=== PATIENT | male | born 1975 | race Caucasian/White ===

== ENCOUNTER 2019-08-22 17:05 | Emergency (ER) | payer OTHER, SELFPAY | END 2019-08-22 20:35 | disposition home or self-care (01) | LOC: ED 17:05 | DX: R50.9 Fever, unspecified (principal); R51 Headache; M79.10 Myalgia, unspecified site; R43.8 Other disturbances of smell and taste; R05 Cough; Z20.828 Contact with and (suspected) exposure to other viral communicable diseases | CPT/HCPCS: U0003-CS ==

== ENCOUNTER 2019-11-04 18:53 | Emergency (ER) | payer OTHER, SELFPAY ==
[~2019-11-04] VITALS: Ht 180.3 cm; Wt 82.6 kg
[2019-11-04 18:54] VITALS: BP 126/76; Ht 180.3 cm; Wt 82.6 kg
== END 2019-11-04 19:48 | disposition home or self-care (01) ==
LOC: ED 18:53
DX: M79.10 Myalgia, unspecified site (principal); R50.9 Fever, unspecified; R53.1 Weakness; Z20.828 Contact with and (suspected) exposure to other viral communicable diseases
CPT/HCPCS: U0003-CS